=== PATIENT | male | born 1960 | race Caucasian/White ===

== ENCOUNTER → 2017-12-24 | Outpatient (CLI) | payer BC ==
[2017-12-24 10:42] LABS: HCT 47.2 % (39.0-53.0); HGB 15.4 gm/dL (13.0-17.5); MCH 31.4 pg (25.0-35.0); MCHC 32.5 g/dL (31.0-37.0); MCV 96.6 fL (80.0-100.0); Platelet Count 247 k/uL (150-450); RBC 4.88 m/uL (4.30-5.90); RDW 12.6 % (11.5-15.5); WBC 5.2 k/uL (3.8-10.6)
[2017-12-24 10:47] LABS: Appearance,Urine Clear (Clear); Bilirubin,Urine Negative (Negative); Blood,Urine Negative (Negative); Color,Urine Light Yellow; Glucose,Urine (UA) Negative (Negative); Ketones,Urine Negative (Negative); Leukocyte Esterase,Urine Negative (Negative); Nitrite,Urine Negative (Negative); PH, Urine 5.5 (5.0-8.0); Protein,Urine Negative (Negative); Specific Gravity,Urine 1.005 (1.001-1.035); Urobilinogen,Urine <2.0 mg/dL (<2.0)
[2017-12-24 11:18] LABS: ALT 34 U/L (21-72); AST 26 U/L (17-59); Albumin 4.3 g/dL (3.5-5.0); Alkaline Phosphatase 79 U/L (38-126); Anion Gap 8 mmol/L; Blood Urea Nitrogen 16 mg/dL (9-20); Calcium 9.6 mg/dL (8.4-10.2); Carbon Dioxide 27 mmol/L (22-30); Chloride 103 mmol/L (98-107); Cholesterol 238 mg/dL (<200); Glucose 95 mg/dL (74-99); HDL Cholesterol 62 mg/dL (40-60); LDL Cholesterol,Calculated 146 mg/dL (0-99); Potassium 4.5 mmol/L (3.5-5.1); Sodium 138 mmol/L (137-145); Total Bilirubin 0.7 mg/dL (0.2-1.3); Total Protein 7.3 g/dL (6.3-8.2); Triglycerides 151 mg/dL (<150)
[2017-12-24 11:42] LABS: PSA Annual Screen 1.06 ng/mL (0.00-4.00)
== END | disposition home or self-care (01) ==
LOC: LABWHC1 09:28
PROVIDERS: ATTEND Internal Medicine
DX: Z00.00 Encounter for general adult medical examination without abnormal findings (principal); E78.5 Hyperlipidemia, unspecified; Z12.5 Encounter for screening for malignant neoplasm of prostate
CPT/HCPCS: 80061; 80053; 85027; 81003; 36415; G0103

== ENCOUNTER → 2024-07-28 | Outpatient (CLI) | payer BC ==
--- NOTE | 2024-07-28 18:57 | CA ---
Transthoracic Echo Report Name: Satya Figueredo Age: 63 Gender: M : 1960 Exam Date: 07/28/2024 15:24 Exam Location: [facility] Ht (in): 69 Wt (lb): 200 Ordering Physician: Emery Brito MD Attending/Referring Phys: Emery Brito MD Salon Manager Maria A Pfeiffer RDCS Procedure CPT: Indications: I35.0 Nonrheumatic aortic (valve) stenosis Cardiac Hx: Technical Quality: Fair Contrast 1: Total Dose (mL): Contrast 2: Total Dose (mL): MEASUREMENTS (Male / Female) Normal Values 2D ECHO LV Diastolic Diameter PLAX 4.9 cm 4.2 - 5.9 / 3.9 - 5.3 cm LV Systolic Diameter PLAX 3.5 cm IVS Diastolic Thickness 1.2 cm 0.6 - 1.0 / 0.6 - 0.9 cm LVPW Diastolic Thickness 1.1 cm 0.6 - 1.0 / 0.6 - 0.9 cm LV Relative Wall Thickness 0.5 RV Internal Dim ED PLAX 2.2 cm LVOT Diameter 2.1 cm LA Systolic Diameter LX 3.6 cm 3.0 - 4.0 / 2.7 - 3.8 cm LV Diastolic Volume MOD BP 81.0 cm??? 67 - 155 / 56 - 104 cm??? LV Systolic Volume MOD BP 41.3 cm??? 22 - 58 / 19 - 49 cm??? LV Ejection Fraction MOD BP 49.0 % >= 55 % LV Cardiac Index MOD BP 1457.6 cm???/min???m??? LV Diastolic Volume MOD 4C 93.8 cm??? LV Systolic Volume MOD 4C 49.9 cm??? LV Ejection Fraction MOD 4C 46.7 % LV Cardiac Index MOD 4C 1609.7 cm???/min???m??? LV Diastolic Length 4C 7.7 cm LV Systolic Length 4C 6.9 cm LV Diastolic Volume MOD 2C 70.2 cm??? LV Systolic Volume MOD 2C 32.2 cm??? LV Ejection Fraction MOD 2C 54.2 % LV Cardiac Index MOD 2C 1396.6 cm???/min???m??? LV Diastolic Length 2C 7.6 cm LV Systolic Length 2C 6.5 cm M-MODE Aortic Root Diameter MM 3.3 cm LA Systolic Diameter MM 3.0 cm LA Ao Ratio MM 0.9 AV Cusp Separation MM 1.1 cm DOPPLER AV Peak Velocity 284.3 cm/s AV Peak Gradient 32.3 mmHg AV Mean Velocity 194.1 cm/s AV Mean Gradient 19.5 mmHg AV Velocity Time Integral 55.6 cm AI Peak Velocity 476.0 cm/s AI Peak Gradient 90.6 mmHg AI Pressure Half Time 843.6 ms LVOT Peak Velocity 108.1 cm/s LVOT Peak Gradient 4.7 mmHg LVOT Velocity Time Integral 25.6 cm LVOT Stroke Volume 89.4 cm??? LVOT Stroke Volume Index 43.3 ml/m??? LVOT Cardiac Index 3283.2 cm???/min???m??? AV Area Cont Eq vti 1.6 cm??? AV Area Cont Eq pk 1.3 cm??? Mitral E Point Velocity 104.2 cm/s Mitral A Point Velocity 93.4 cm/s Mitral E to A Ratio 1.1 MV Deceleration Time 284.9 ms MV E' Velocity 8.0 cm/s Mitral E to MV E' Ratio 13.0 TR Peak Velocity 158.0 cm/s TR Peak Gradient 10.0 mmHg FINDINGS Left Ventricle Left ventricular ejection fraction is estimated at 55-60 %. Mildly increased septal wall thickness. Normal left ventricular systolic function with no obvious regional wall motion abnormalities. Left ventricular cavity size normal. Right Ventricle Normal right ventricular size and function. Right ventricular systolic pressure within normal limits. Right Atrium Normal right atrial size. Left Atrium Normal left atrial size. Mitral Valve Structurally normal mitral valve. Trace to mild mitral regurgitation. No mitral stenosis. Aortic Valve Trileaflet aortic valve. Moderate aortic stenosis with a peak gradient of 32 mmHg and a mean gradient of 20mmHg. Thickened aortic valve. [id number] aortic regurgitation. Tricuspid Valve Structurally normal tricuspid valve. Trace tricuspid regurgitation. No tricuspid stenosis. Pulmonic Valve Structurally normal pulmonic valve. Trace pulmonic regurgitation. No pulmonic stenosis. Pericardium No pericardial or pleural effusion. Aorta Normal size aortic root and proximal ascending aorta. CONCLUSIONS Reason for echo Aortic valve disease LVH with preserved systolic function Moderate aortic stenosis with a peak gradient of 32 mmHg and mean gradient of 20 mmHg with mild regurgitation Previewed by: Dr. Dandy Huntley MD (Electronically Signed) Final Date: 28 Jul 2024 18:57
== END | disposition home or self-care (01) ==
LOC: RADECHMAIN 15:11
PROVIDERS: ATTEND Family Medicine
DX: I35.0 Nonrheumatic aortic (valve) stenosis (principal); I34.0 Nonrheumatic mitral (valve) insufficiency
CPT/HCPCS: 93306